=== PATIENT | female | born 1975 | race Caucasian/White ===

== ENCOUNTER 2023-08-03 06:08 | Day surgery (SDC) | payer SELFPAY ==
[2023-08-03] MEDS ORDERED: Midazolam 1 MG/ML 2 ML SDV IV ONE (06:09)
[2023-08-03] MEDS ORDERED: Propofol 200 MG/20 ML SDV IV ONE (06:09)
[2023-08-03] MEDS ORDERED: fentaNYL 100 MCG/2 ML SDV IV ONE (06:09)
[2023-08-03] MEDS ORDERED: Sodium Chloride 0.9% 10 ML Syringe FLUSH PRN (06:15)
[2023-08-03] MEDS: Lactated Ringers 1,000 ML IV SCH (07:25)
[2023-08-03] MEDS: Simethicone Drops 40 MG/0.6 ML 30 ML Bottle ONE (07:40)
== END 2023-08-03 09:19 | disposition home or self-care (01) ==
LOC: FB.SDS 06:08
PROVIDERS: ATTEND Surgery
DX: K57.31 Diverticulosis of large intestine without perforation or abscess with bleeding (principal); Z86.010 Personal history of colon polyps; Z80.0 Family history of malignant neoplasm of digestive organs
CPT/HCPCS: 00812; A9270-GY; J2250; J2704; J3010; J7120